=== PATIENT | male | born 2000 | race African-American/Black ===

== ENCOUNTER 2021-05-11 21:58 | Emergency (ER) | payer SELFPAY ==
[~2021-05-11] VITALS: Ht 172.7 cm; Wt 65.0 kg
[2021-05-11] MEDS ORDERED: SODIUM CHLORIDE 0.9% 1,000 ML IV ONE (23:45)
[2021-05-12 01:57] VITALS: BP 124/65
== END 2021-05-12 02:00 | disposition home or self-care (01) ==
LOC: ER 21:58
DX: T43.641A Poisoning by ecstasy, accidental (unintentional), initial encounter (principal); Y92.9 Unspecified place or not applicable; F17.210 Nicotine dependence, cigarettes, uncomplicated; Z71.6 Tobacco abuse counseling
CPT/HCPCS: 96360; 99283; 99406; J7030

== ENCOUNTER 2023-03-02 02:33 | Emergency (ER) | payer MEDICAID ==
[~2023-03-02] VITALS: Ht 185.4 cm; Wt 75.0 kg
[2023-03-02 02:45] VITALS: O2SAT 99
[2023-03-02] MEDS ORDERED: SODIUM CHLORIDE 0.9% 1,000 ML IV ONE (03:45)
[2023-03-02] MEDS ORDERED: TETANUS, DIPHTHERIA, PERTUSSIS VAC/PF 0.5ML (>10YR OLD) IM ONE (03:45)
[2023-03-02] MEDS ORDERED: LIDOCAINE HCL/EPINEPHRINE 1%-EPI 1:100,000 20 ML VIAL INFIL ONE (03:45)
[2023-03-02] MEDS ORDERED: BACITRACIN ZINC OINT UDPKT TOP ONE (03:45)
[2023-03-02 04:00] LABS: BASOPHILS % 0.1 % (0.0-2.0); EOSINOPHILS % 0.3 % (0.0-5.0); HEMATOCRIT. 53.5 % (42.0-52.0); HEMOGLOBIN. 18.6 g/dL (14.0-18.0); LYMPHOCYTES % 13.3 % (20.0-50.0); MEAN CORPUSCULAR HEMOGLOBIN 32.7 pg (28.0-32.0); MEAN CORPUSCULAR VOLUME 93.8 fL (80.0-94.0); MEAN PLATELET VOLUME 8.8 fl (7.4-10.4); MONOCYTES % 10.1 % (2.0-8.0); NEUTROPHILS % 76.2 % (40.0-76.0); PLATELET 272 x1000/uL (130-400); RED CELL DISTRIBUTION WIDTH 14.4 % (11.6-14.6)
[2023-03-02 04:05] LABS: CHLORIDE 102 mEq/L (98-107)
[2023-03-02] MEDS ORDERED: CEPH500C2 MT (06:13)
[2023-03-02] MEDS ORDERED: IBUP-2029 MT (06:13)
[2023-03-02] MEDS ORDERED: IOHEXOL-300 100 ML BOTTLE ONE (06:31)
[2023-03-02 07:00] VITALS: BP 118/88; PULSE 72; RESP 18; TEMP 98
== END 2023-03-02 07:00 | disposition home or self-care (01) ==
LOC: ER 02:33
DX: S01.81XA Laceration without foreign body of other part of head, initial encounter (principal); F12.10 Cannabis abuse, uncomplicated; F16.10 Hallucinogen abuse, uncomplicated; Z98.890 Other specified postprocedural states; Y04.0XXA Assault by unarmed brawl or fight, initial encounter; Y93.89 Activity, other specified; Y92.89 Other specified places as the place of occurrence of the external cause; Y99.8 Other external cause status
CPT/HCPCS: 99285; 70450; 80048; 85025; 36415; 74177; 12011; Q9967; J7030; 12001; J3490

== ENCOUNTER 2024-05-24 23:24 | Emergency (ER) | payer MEDICAID, OTHER ==
[~2024-05-24] VITALS: Ht 177.8 cm; Wt 80.0 kg
[~2024-05-24 23:24] MED LIST: CEPH500C2 MT; IBUP-2029 MT
[2024-05-24 23:32] VITALS: O2SAT 96
[2024-05-25] MEDS ORDERED: TETANUS, DIPHTHERIA, PERTUSSIS VAC/PF 0.5ML (>10YR OLD) IM ONE (01:15)
[2024-05-25] MEDS ORDERED: LIDOCAINE HCL/EPINEPHRINE 1%-EPI 1:100,000 20ML VIAL INFIL ONE (01:15)
[2024-05-25 01:49] LABS: BASOPHILS % 0.4 % (0.0-2.0); CHLORIDE 106 mEq/L (98-107); EOSINOPHILS % 0.2 % (0.0-5.0); HEMATOCRIT. 47.7 % (42.0-52.0); HEMOGLOBIN. 16.1 g/dL (14.0-18.0); LYMPHOCYTES % 22.1 % (20.0-50.0); MEAN CORPUSCULAR HEMOGLOBIN 32.4 pg (28.0-32.0); MEAN CORPUSCULAR HGB CONC 33.9 g/dL (31.0-37.0); MEAN CORPUSCULAR VOLUME 95.8 fL (80.0-94.0); MEAN PLATELET VOLUME 9.2 fl (7.4-10.4); MONOCYTES % 7.7 % (2.0-8.0); NEUTROPHILS % 69.6 % (40.0-76.0); PLATELET 199 x1000/uL (130-400); POTASSIUM 3.4 mEq/L (3.5-5.1); RED BLOOD CELL COUNT 4.98 mill/uL (4.7-6.1); RED CELL DISTRIBUTION WIDTH 13.5 % (11.6-14.6); SODIUM 141 mEq/L (136-145); WHITE BLOOD COUNT 7.5 x1000/uL (4.5-11.0)
[2024-05-25 01:50] LABS: CARBON DIOXIDE 28 mEq/L (21-32)
[2024-05-25 01:51] LABS: CALCIUM 9.3 mg/dL (8.7-10.4)
[2024-05-25 01:55] LABS: CREATININE 1.3 mg/dL (0.6-1.3); GLUCOSE 108 mg/dL (70-105); PARTIAL THROMBOPLASTIN TIME 23.9 sec (23.4-31.0); PROTHROMBIN TIME 11.3 sec (9.6-11.0); UREA NITROGEN BLOOD 11 mg/dL (9-23)
[2024-05-25 01:56] LABS: ETHANOL BLOOD 297 mg/dL (<10)
[2024-05-25] MEDS: SODIUM CHLORIDE 0.9% 1,000 ML IV ONE ×2 (02:21)
[2024-05-25] MEDS ORDERED: LORAZEPAM 1MG TABLET PO ONE (02:45)
[2024-05-25] MEDS: ONDANSETRON HCL 4MG/2ML INJ IV ONE (03:04)
[2024-05-25] MEDS: LORAZEPAM 2MG/ML INJ IV ONE (03:05)
[2024-05-25] MEDS: TETANUS, DIPHTHERIA, PERTUSSIS VAC/PF 0.5ML (>10YR OLD) IM ONE (04:08)
[2024-05-25] MEDS: LIDOCAINE HCL/EPINEPHRINE 1%-EPI 1:100,000 20ML VIAL INFIL NR (04:10)
[2024-05-25] MEDS: BACITRACIN ZINC OINT UDPKT TOP ONE (04:47)
[2024-05-25 09:10] VITALS: BP 110/67; PULSE 78; RESP 17; TEMP 36.66960; O2SAT 100
== END 2024-05-25 09:43 | disposition home or self-care (01) ==
LOC: ER 23:24
DX: S01.511A Laceration without foreign body of lip, initial encounter (principal); F10.129 Alcohol abuse with intoxication, unspecified; F12.10 Cannabis abuse, uncomplicated; F15.10 Other stimulant abuse, uncomplicated; F41.9 Anxiety disorder, unspecified; Y04.0XXA Assault by unarmed brawl or fight, initial encounter; Y93.89 Activity, other specified; Y92.89 Other specified places as the place of occurrence of the external cause; Y99.8 Other external cause status; Z98.890 Other specified postprocedural states; Y90.8 Blood alcohol level of 240 mg/100 ml or more
CPT/HCPCS: 12011; 99285; 80048; 80320; 85025; 85610; 85730; 86850; 86900; 86901; 36415; 70450; 70486; 72125; 90715; 90471; 96374; 96375; J3490; J2060; J2405; J7030; Z7610 ×3; G0480